=== PATIENT | female | born 1980 | race Caucasian/White ===

== ENCOUNTER → 2020-02-07 | Outpatient (CLI) | payer OTHER | LOC: M.CT 12:30 | PROVIDERS: ATTEND Registered Nurse Diabetes Educator | DX: K57.30 Diverticulosis of large intestine without perforation or abscess without bleeding (principal); K62.5 Hemorrhage of anus and rectum ==

== ENCOUNTER → 2020-04-06 | Outpatient (CLI) | payer OTHER | LOC: M.RAD 11:55 | PROVIDERS: ATTEND Internal Medicine | DX: M25.532 Pain in left wrist (principal) ==

== ENCOUNTER → 2021-02-22 | Outpatient (CLI) | payer OTHER ==
--- NOTE | 2021-02-22 17:23 | 2DMMODE ---
[place] [address] 2 D/M-MODE ECHOCARDIOGRAM Name: CANDICE BLANCA Room: [facility]#: [id number] Admission: 02/22/21 Attend Phys: AIDEN Middleton Discharge: Date of : 76 Date of Service: 02/22/21 1723 Report #: [id number] THIS REPORT FOR: cc: Parisa Chin Tammy RNP Blick, David R. MD [facility] ~ APPROVED REPORT Study performed: 02/22/2021 14:49:27 EXAM: Comprehensive 2D, Doppler, and color-flow Echocardiogram Patient Location: Out-Patient BSA: 2.02 HR: 86 bpm BP: 110/60 mmHg Other Information Study Quality: Good Indications Dyspnea Palpitations Fatigue 2D Dimensions IVSd: 8.87 (7-11mm) LVOT Diam: 19.58 (18-24mm) LVDd: 41.82 mm PWd: 6.85 (7-11mm) Ascending Ao: 26.95 (22-36mm) LVDs: 21.23 (25-40mm) Aortic Root: 24.58 mm Volumes Left Atrial Volume (Systole) LA ESV Index: 13.20 mL/m2 Aortic Valve AoV Peak Rohith.: 1.77 m/s AO Peak Gr.: 12.48 mmHg LVOT Max P.55 mmHg AO Mean Gr.: 6.65 mmHg LVOT Mean P.64 mmHg LVOT Max V: 1.46 m/s AO V2 VTI: 34.52 cm LVOT Mean V: 0.86 m/s KELLY (VTI): 2.43 cm2 LVOT V1 VTI: 27.81 [place] [address] 2 D/M-MODE ECHOCARDIOGRAM Name: CANDICE BLANCA Room: [facility]#: [id number] Admission: 02/22/21 Attend Phys: AIDEN Middleton Discharge: Date of : 76 Date of Service: 02/22/21 1723 Report #: [id number] Mitral Valve E/A Ratio: 1.09 MV Decel. Time: 151.25 ms MV E Max Rohith.: 0.83 m/s MV PHT: 43.86 ms MVA (PHT): 5.02 cm2 TDI E/Lateral E': 5.93 E/Medial E': 7.55 Medial E' Rohith.: 0.11 m/s Lateral E' Rohith.: 0.14 m/s Pulmonary Valve PV Peak Rohith.: 1.11 m/s PV Peak Gr.: 4.89 mmHg Tricuspid Valve RAP Estimate: 5.00 mmHg TR Peak Gr.: 24.87 mmHg RVSP: 29.87 mmHg PA Pressure: 29.87 mmHg Left Ventricle The left ventricle is normal size. There is normal LV segmental wall motion. There is normal left ventricular wall thickness. Left ventricular systolic function is normal. The left ventricular ejection fraction is within the normal range. LVEF is 55-60%. The left ventricular diastolic function is normal. Right Ventricle The right ventricle is normal size. The right ventricular systolic function is normal. Atria The left atrium size is normal. The right atrium size is normal. Aortic Valve The aortic valve is normal in structure. No aortic regurgitation is present. There is no aortic valvular stenosis. Mitral Valve The mitral valve is normal in structure. There is no mitral valve regurgitation noted. No evidence of mitral valve stenosis. Tricuspid Valve The tricuspid valve is normal in structure. [place] [address] 2 D/M-MODE ECHOCARDIOGRAM Name: CANDICE BLANCA Room: [facility]#: [id number] Admission: 02/22/21 Attend Phys: AIDEN Middleton Discharge: Date of : 76 Date of Service: 02/22/21 1723 Report #: [id number] Pulmonic Valve The pulmonary valve is normal in structure. There is no pulmonic valvular regurgitation. Great Vessels The aortic root is normal in size. IVC is normal in size and collapses >50% with inspiration. Pericardium There is no pericardial effusion. <Conclusion> Left ventricular systolic function is normal. The left ventricular ejection fraction is within the normal range. <ELECTRONICALLY SIGNED> By: Miki Delacruz MD, FACC 02/22/211722 22 22 Miki Delacruz MD, FACC /INF
== END ==
LOC: M.CRD 13:31
PROVIDERS: ATTEND Registered Nurse Diabetes Educator
DX: I07.1 Rheumatic tricuspid insufficiency (principal); R53.83 Other fatigue; R00.2 Palpitations; Z86.16 Personal history of COVID-19